=== PATIENT | female | born 1970 | race Caucasian/White ===

== ENCOUNTER 2017-03-17 11:32 | Outpatient (CLI) | payer OTHER ==
--- NOTE | 2017-03-17 17:23 | Diagnostic Imaging Report ---
[facility] [address] [facility].[address] [id number] Report Submission Date: Mar 17, 2017 12:15:52 PM CDT Patient Study Name: TAYLOR VALADEZ Date: Mar 17, 2017 11:45:04 AM CDT Modality Type: CR Gender: F Description: ABDOMEN : 68 Institution: [facility] Physician: HARLEY INGRAM - OP Examination: Obstruction series History: Abdominal discomfort Findings: 4 views obtained of the chest and abdomen. Single view of the chest demonstrate a normal cardiac and mediastinal silhouette. No focal infiltrate. No effusion. Multiple views of the abdomen are without abnormal dilation of the large or small bowel. Air and stool throughout the large bowel. No suspicious calcification projecting over the renal fossa or the lower pelvic region. Scattered abdominal surgical clips. Osseous structures are appropriate for age. Impression: No infiltrate or effusion. No ileus or obstruction. No suspicious calcifications by plain film sensitivity. Electronically signed on Mar 17, 2017 12:15:52 PM CDT by: Yung LEON
== END 2017-03-17 12:36 ==
LOC: RAD 11:32
PROVIDERS: ATTEND Family Medicine
DX: R10.13 Epigastric pain (principal); R19.4 Change in bowel habit
CPT/HCPCS: 74022

== ENCOUNTER 2017-11-04 10:15 | Outpatient (CLI) | payer OTHER ==
[2017-11-04] MEDS ORDERED: D5W IV SCH (10:30)
[2017-11-04] MEDS ORDERED: CEFEPIME HCL IV SCH (10:30)
[2017-11-04] MEDS ORDERED: VANCOMYCIN HCL 1.25 GM in 0.9 % SODIUM CHLORIDE 250 ML IV SCH (11:00)
[2017-11-04] MEDS ORDERED: SALINE FLUSH 10 ML DISP.SYRIN IVF ONE (12:00)
[2017-11-04] MEDS ORDERED: 0.9 % SODIUM CHLORIDE 250 ML IV.SOLN IV ONE (12:00)
[2017-11-04] MEDS ORDERED: CEFEPIME HCL/D5W 1 GM/50 ML BAG IV ONE (12:00)
[2017-11-04] MEDS ORDERED: HEPARIN SODIUM,PORCINE 30 UNITS INJ IV ONE (12:00)
[2017-11-04] MEDS ORDERED: VANCOMYCIN HCL 1 GM VIAL IV ONE (12:00)
== END 2017-11-04 10:16 ==
LOC: INF 10:15
PROVIDERS: ATTEND Internal Medicine Critical Care Medicine
DX: J15.211 Pneumonia due to Methicillin susceptible Staphylococcus aureus (principal); J20.1 Acute bronchitis due to Hemophilus influenzae
CPT/HCPCS: J0692; J3370; J7050; 96365; 96367

== ENCOUNTER 2017-11-05 08:39 | Outpatient (CLI) | payer OTHER ==
[2017-11-05] MEDS ORDERED: HEPARIN SODIUM,PORCINE 30 UNITS INJ IV ONE (09:00)
[2017-11-05] MEDS ORDERED: 0.9 % SODIUM CHLORIDE 250 ML IV.SOLN IV ONE (09:00)
[2017-11-05] MEDS ORDERED: VANCOMYCIN HCL 1 GM VIAL IV ONE (09:00)
[2017-11-05] MEDS ORDERED: SALINE FLUSH 10 ML DISP.SYRIN IVF ONE (09:00)
[2017-11-05] MEDS ORDERED: CEFEPIME HCL/D5W 1 GM/50 ML BAG IV ONE (09:00)
[2017-11-06] MEDS ORDERED: CEFEPIME HCL IV SCH (08:00)
[2017-11-06] MEDS ORDERED: D5W IV SCH (08:00)
== END 2017-11-05 08:40 ==
LOC: INF 08:39
PROVIDERS: ATTEND Internal Medicine Critical Care Medicine
DX: J15.211 Pneumonia due to Methicillin susceptible Staphylococcus aureus (principal); J20.1 Acute bronchitis due to Hemophilus influenzae
CPT/HCPCS: 80202; 96365; 96367; J0692; J3370; J7050

== ENCOUNTER 2017-11-06 08:48 | Outpatient (CLI) | payer OTHER ==
[2017-11-06] MEDS ORDERED: CEFEPIME HCL/D5W 1 GM/50 ML BAG IV ONE (09:00)
[2017-11-06] MEDS ORDERED: SALINE FLUSH 10 ML DISP.SYRIN IVF ONE (09:00)
[2017-11-06] MEDS ORDERED: VANCOMYCIN HCL 1 GM VIAL IV ONE (09:00)
[2017-11-06] MEDS ORDERED: NORMAL SALINE 500 ML IV.SOLN IV ONE (09:00)
[2017-11-06] MEDS ORDERED: HEPARIN SODIUM,PORCINE 30 UNITS INJ IV ONE (09:00)
[2017-11-06] MEDS ORDERED: CEFEPIME HCL IV SCH (09:30)
[2017-11-06] MEDS ORDERED: D5W IV SCH (09:30)
[2017-11-06] MEDS ORDERED: SODIUM CHLORIDE 0.9% IV SCH (10:00)
[2017-11-06] MEDS ORDERED: VANCOMYCIN HCL IV SCH (10:00)
== END 2017-11-06 08:50 ==
LOC: INF 08:48
PROVIDERS: ATTEND Internal Medicine Critical Care Medicine
DX: J15.211 Pneumonia due to Methicillin susceptible Staphylococcus aureus (principal); J20.1 Acute bronchitis due to Hemophilus influenzae
CPT/HCPCS: J0692; J3370; J7060; 96365; 96366; 96367

== ENCOUNTER 2017-11-07 08:44 | Outpatient (CLI) | payer OTHER ==
[2017-11-07] MEDS ORDERED: NORMAL SALINE 500 ML IV.SOLN IV ONE (09:00)
[2017-11-07] MEDS ORDERED: VANCOMYCIN HCL 1 GM VIAL IV ONE (09:00)
[2017-11-07] MEDS ORDERED: CEFEPIME HCL/D5W 1 GM/50 ML BAG IV ONE (09:00)
[2017-11-07] MEDS ORDERED: SALINE FLUSH 10 ML DISP.SYRIN IVF ONE (09:00)
[2017-11-07] MEDS ORDERED: HEPARIN SODIUM,PORCINE 30 UNITS INJ IV ONE (09:00)
[2017-11-07] MEDS ORDERED: ONDANSETRON HCL 4 MG TAB.RAPDIS ONE ×2 (09:00→10:10)
[2017-11-07] MEDS ORDERED: ONDANSETRON HCL 4 MG TAB.RAPDIS PO ONE (10:10)
== END 2017-11-07 08:45 ==
LOC: INF 08:44
PROVIDERS: ATTEND Internal Medicine Critical Care Medicine
DX: J15.211 Pneumonia due to Methicillin susceptible Staphylococcus aureus (principal); J20.1 Acute bronchitis due to Hemophilus influenzae
CPT/HCPCS: A9270; J0692; J3370; J7060; 96365; 96366; 96367

== ENCOUNTER 2017-11-13 17:39 | Outpatient (CLI) | payer OTHER | END 2017-11-13 17:40 | LOC: OUT 17:39 | PROVIDERS: ATTEND Internal Medicine Critical Care Medicine | DX: J15.211 Pneumonia due to Methicillin susceptible Staphylococcus aureus (principal) | CPT/HCPCS: 96523; 99211 ==

== ENCOUNTER 2019-06-15 16:49 | Outpatient (CLI) | payer OTHER ==
--- NOTE | 2019-06-16 09:53 | Diagnostic Imaging Report ---
EMA MO (MAREK) - OP [facility] [address] [address] Report Submission Date: Jun 15, 2019 5:37:20 PM CDT Patient Study Name: TAYLOR VALADEZ Date: Jun 15, 2019 4:53:11 PM CDT Modality Type: DX Gender: F Description: FOOT 3 VIEWS OR MORE : 68 Institution: [facility] Physician: EMA MO (MAREK) - OP Left foot, 3 views HISTORY Injury, pain, attention fifth toe FINDINGS There is no fracture, dislocation or abnormal bone production or destruction. Plantar calcaneal spur is present. IMPRESSION No acute abnormality. Electronically signed on Jun 15, 2019 5:37:20 PM CDT by: Dino LEON
== END 2019-06-15 16:51 ==
LOC: RAD 16:49
PROVIDERS: ATTEND Nurse Practitioner Family
DX: S99.922A Unspecified injury of left foot, initial encounter (principal); W20.8XXA Other cause of strike by thrown, projected or falling object, initial encounter
CPT/HCPCS: 73630